=== PATIENT | male | born 1955 | race Caucasian/White ===

== ENCOUNTER 2018-02-11 03:36 | Emergency (ER) | payer MEDICAID ==
[~2018-02-11] VITALS: Ht 175.3 cm; Wt 97.5 kg
[2018-02-11] MEDS ORDERED: KETOROLAC TROMETH 60MG/2ML VIAL IM ONE (06:45)
[2018-02-11 07:35] VITALS: BP 120/74
== END 2018-02-11 07:38 | disposition home or self-care (01) ==
LOC: ER 03:39
DX: M19.041 Primary osteoarthritis, right hand (principal); F17.210 Nicotine dependence, cigarettes, uncomplicated; F15.10 Other stimulant abuse, uncomplicated
CPT/HCPCS: 73140; 96372; 99284; J1885

== ENCOUNTER → 2020-07-03 | Outpatient (CLI) | payer MEDICARE, MEDICAID | END | disposition home or self-care (01) | LOC: LAB 17:04 | PROVIDERS: ATTEND Nurse Practitioner Family | DX: U07.1 COVID-19 (principal) | CPT/HCPCS: 36415; 87426 ==

== ENCOUNTER 2022-05-14 18:19 | Inpatient (IN) | payer MEDICARE, MEDICAID ==
[~2022-05-14] VITALS: Ht 172.7 cm; Wt 87.5 kg
[2022-05-14] MEDS ORDERED: SODIUM CHLORIDE 0.9% 500 ML IV ONE (19:15)
[2022-05-14 19:42] LABS: Basophils # (auto) 0.1 10 ^3/uL (0-0.2); Basophils % (auto) 1.1 % (0.0-2.0); Eosinophils # (auto) 0.1 10 ^3/uL (0-0.8); Eosinophils % (auto) 0.5 % (0.0-7.0); Hematocrit 48.6 % (41.0-53.0); Hemoglobin 16.5 g/dL (13.5-17.5); Lymphocytes # (auto) 0.5 10 ^3/uL (0.4-5.4); Lymphocytes % (auto) 4.9 % (10.0-50.0); Mean Corpuscular Hemoglobin 29.8 pg (28.0-32.0); Mean Corpuscular Hgb Conc. 33.9 g/dL (32.0-36.0); Mean Corpuscular Volume 88.1 fL (80.0-100.0); Monocytes # (auto) 0.7 10 ^3/uL (0-1.3); Monocytes % (auto) 7.2 % (0.0-12.0); Neutrophils # (auto) 8.7 10 ^3/uL (1.6-8.6); Neutrophils % (auto) 86.3 % (37.0-80.0); Nucleated Red Blood Cells % 0.1 %; Red Blood Cells 5.52 10^6/uL (4.5-5.90); Red Cell Distribution Width 12.9 % (11.8-14.3); White Blood Cell 10.1 10^3/uL (4.4-10.8)
[2022-05-14] MEDS ORDERED: SODIUM CHLORIDE 0.9% 1,000 ML IVB ONE (19:45)
[2022-05-14 20:00] LABS: Potassium 4.5 mmol/L (3.5-5.1)
[2022-05-14 20:01] LABS: Albumin 3.5 g/dL (3.4-5.0); BUN/Creatinine Ratio 8.9; Calcium 8.8 mg/dL (8.5-10.1)
[2022-05-14 20:04] LABS: Total Protein 6.8 g/dL (6.4-8.2)
[2022-05-14 20:06] LABS: Lactic Acid w/Reflex 2.3 mmol/L (0.4-2.0)
[2022-05-14 20:29] LABS: Albumin 3.7 g/dL (3.4-5.0); BUN/Creatinine Ratio 8.6; Calcium 9.1 mg/dL (8.5-10.1); Magnesium 1.8 mg/dL (1.6-2.6); Potassium 4.4 mmol/L (3.5-5.1); Total Protein 7.8 g/dL (6.4-8.2)
[2022-05-14 22:35] LABS: Lactic Acid w/Reflex 2.1 mmol/L (0.4-2.0)
[2022-05-14] MEDS ORDERED: LACTATED RINGER'S 3,000 ML IV ONE (22:45)
[2022-05-14] MEDS ORDERED: InsuLIN REG 1unit/0.01ml Soln (100units/ml) IV ONE (22:45)
[2022-05-14 23:14] LABS: INR 1.11 (0.9-1.15); Partial Thromboplastin Time 29.5 sec (24.6-33.4)
[2022-05-14] MEDS ORDERED: DEXTROSE (50%) 50ML SYRG IV PRN (23:15)
[2022-05-14] MEDS ORDERED: PANTOPRAZOLE 40 MG/10 ML VIAL INJ IV ONE (23:30)
[2022-05-14 23:50] LABS: Cholesterol 156 mg/dL (< 200); HDL Cholesterol 44 mg/dL (40-59); LDL Cholesterol 109 mg/dL (< 100); Triglycerides 114 mg/dL (< 150)
[2022-05-15] MEDS ORDERED: LACTATED RINGER'S 1,000 ML IV ONE (02:15)
[2022-05-15] MEDS: SODIUM CHLORIDE 0.9% 1,000 ML IV SCH ×3 (02:16→19:15)
[2022-05-15 04:22] LABS: Albumin 2.8 g/dL (3.4-5.0); BUN/Creatinine Ratio 14.1; Bilirubin, Total 0.7 mg/dL (0.2-1.0); Potassium 3.5 mmol/L (3.5-5.1); Total Protein 5.4 g/dL (6.4-8.2)
[2022-05-15 04:33] LABS: Basophils # (auto) 0.2 10 ^3/uL (0-0.2); Basophils % (auto) 2.5 % (0.0-2.0); Eosinophils # (auto) 0 10 ^3/uL (0-0.8); Eosinophils % (auto) 0.7 % (0.0-7.0); Hemoglobin 13.4 g/dL (13.5-17.5); Lymphocytes # (auto) 0.6 10 ^3/uL (0.4-5.4); Lymphocytes % (auto) 9.7 % (10.0-50.0); Mean Corpuscular Hgb Conc. 33.6 g/dL (32.0-36.0); Mean Corpuscular Volume 89.5 fL (80.0-100.0); Monocytes # (auto) 0.7 10 ^3/uL (0-1.3); Monocytes % (auto) 11.3 % (0.0-12.0); Neutrophils % (auto) 75.8 % (37.0-80.0); Red Blood Cells 4.47 10^6/uL (4.5-5.90); Red Cell Distribution Width 13.3 % (11.8-14.3); White Blood Cell 6.5 10^3/uL (4.4-10.8)
[2022-05-15 05:05] VITALS: BP 108/68
[2022-05-15] MEDS: ACCU-CHEK COMFORT CURVE STRIP VI SCH ×4 (06:25→22:35)
[2022-05-15] MEDS: InsuLIN REG 1unit/0.01ml Soln (100units/ml) SC SCH ×4 (06:28→22:36)
[2022-05-15 09:00] VITALS: BP 105/68
[2022-05-15] MEDS ORDERED: PANTOPRAZOLE 40 MG/10 ML VIAL INJ IV SCH (10:00)
[2022-05-15] MEDS: ENOXAPARIN SOD 40 MG/0.4 ML SYRINGE SC SCH (11:49)
[2022-05-15 13:00] VITALS: BP 124/72
[2022-05-15 16:49] VITALS: BP 115/78
[2022-05-15 21:09] LABS: Alcohol, Urine < 3.0 mg/dL (0-10); Amphetamine Screen, Urine POSITIVE (NEGATIVE); Barbiturate Scree,Urine NEGATIVE (NEGATIVE); Cannabinoid Screen, Urine NEGATIVE (NEGATIVE); Cocaine Screen, Urine NEGATIVE (NEGATIVE); Opiate Scree,Urine NEGATIVE (NEGATIVE); Phencyclidine Screen, Urine NEGATIVE (NEGATIVE)
[2022-05-15 21:18] LABS: Benzodiazephine Screen, Urine NEGATIVE (NEGATIVE)
[2022-05-15 21:41] LABS: Urine Bacteria NONE SEEN /hpf (None Seen); Urine Blood Negative /uL (Negative); Urine Mucus FEW (None Seen); Urine Specific Gravity 1.014 (1.001-1.035); Urine WBC 3 /hpf (0 - 3)
[2022-05-15 22:00] VITALS: BP 113/74
[2022-05-15] MEDS: OSELTAMIVIR 75 MG CAP PO SCH (22:00)
[2022-05-15] MEDS: LACTATED RINGER'S 1,000 ML IV SCH (22:35)
[2022-05-16 05:00] VITALS: BP 99/71
[2022-05-16] MEDS: SODIUM CHLORIDE 0.9% 1,000 ML IV SCH (05:15)
[2022-05-16] MEDS: ACCU-CHEK COMFORT CURVE STRIP VI SCH ×4 (06:38→21:34)
[2022-05-16] MEDS: InsuLIN REG 1unit/0.01ml Soln (100units/ml) SC SCH ×5 (06:39→21:55)
[2022-05-16 07:06] LABS: Potassium 3.3 mmol/L (3.5-5.1)
[2022-05-16 07:19] LABS: BUN/Creatinine Ratio 18.3; Calcium 8.4 mg/dL (8.5-10.1)
[2022-05-16 09:00] VITALS: BP 104/67
[2022-05-16] MEDS: OSELTAMIVIR 75 MG CAP PO SCH ×2 (10:00→21:33)
[2022-05-16] MEDS: ENOXAPARIN SOD 40 MG/0.4 ML SYRINGE SC SCH (10:18)
[2022-05-16] MEDS: LACTATED RINGER'S 1,000 ML IV SCH ×2 (10:18→17:45)
[2022-05-16] MEDS: ACETAMINOPHEN 325 MG TAB PO PRN (11:31)
[2022-05-16] MEDS ORDERED: POTASSIUM CHL 20 Meq TABLET PO ONE (12:15)
[2022-05-16 13:00] VITALS: BP 105/63
[2022-05-16] MEDS ORDERED: OSEL75CA5 PO (13:21)
[2022-05-16 17:00] VITALS: BP 113/72
[2022-05-16 22:00] VITALS: BP 133/73
[2022-05-17] MEDS: ACETAMINOPHEN 325 MG TAB PO PRN (03:23)
[2022-05-17] MEDS: LACTATED RINGER'S 1,000 ML IV SCH (04:11)
[2022-05-17 05:00] VITALS: BP 130/69
[2022-05-17] MEDS: ACCU-CHEK COMFORT CURVE STRIP VI SCH ×2 (06:30→12:35)
[2022-05-17] MEDS: InsuLIN REG 1unit/0.01ml Soln (100units/ml) SC SCH ×2 (06:38→12:36)
[2022-05-17 09:00] VITALS: BP 119/72
[2022-05-17] MEDS: OSELTAMIVIR 75 MG CAP PO SCH (10:00)
[2022-05-17] MEDS ORDERED: INSLANTI SC (12:22)
[2022-05-17] MEDS ORDERED: METF-372 PO (12:22)
[2022-05-17] MEDS: ENOXAPARIN SOD 40 MG/0.4 ML SYRINGE SC SCH (12:36)
== END 2022-05-17 14:23 | disposition home or self-care (01) | DRG 872 ==
LOC: ER 18:19 → OVERFLOW 23:10 → WEST WING 05-15 04:39
PROVIDERS: ADMIT Nurse Practitioner Family; ATTEND Family Medicine
DX: A41.9 Sepsis, unspecified organism (principal); N17.9 Acute kidney failure, unspecified; E87.1 Hypo-osmolality and hyponatremia; E86.0 Dehydration; E66.01 Morbid (severe) obesity due to excess calories; I10 Essential (primary) hypertension; E11.649 Type 2 diabetes mellitus with hypoglycemia without coma; E11.65 Type 2 diabetes mellitus with hyperglycemia; E87.6 Hypokalemia; F15.10 Other stimulant abuse, uncomplicated; J10.1 Influenza due to other identified influenza virus with other respiratory manifestations; F17.210 Nicotine dependence, cigarettes, uncomplicated; R26.81 Unsteadiness on feet; Z20.822 Contact with and (suspected) exposure to COVID-19; Z71.51 Drug abuse counseling and surveillance of drug abuser; Z91.199 Patient's noncompliance with other medical treatment and regimen due to unspecified reason; Z68.29 Body mass index [BMI] 29.0-29.9, adult; I95.9 Hypotension, unspecified
CPT/HCPCS: 36415; 71045; 80048; 80053; 80061; 80307; 81001; 82962; 83036; 83605; 83690; 83735; 84443; 84484; 85025; 85610; 85730; 87040; 87426; 87804; 93005; 96361; 96374; 96375; 97116; 97162; 97530; C9113; G0378; J1815

== ENCOUNTER 2022-08-31 11:28 | Inpatient (IN) | payer MEDICARE, MEDICAID ==
[~2022-08-31] VITALS: Ht 172.7 cm; Wt 92.5 kg
[~2022-08-31 11:28] MED LIST: INSLANTI SC; METF-372 PO; OSEL75CA5 PO
[2022-08-31] MEDS ORDERED: SODIUM CHLORIDE 0.9% 1,000 ML IV ONE (12:15)
[2022-08-31 12:57] LABS: Basophils # (auto) 0.1 10 ^3/uL (0-0.2); Basophils % (auto) 1.2 % (0.0-2.0); Eosinophils # (auto) 0.2 10 ^3/uL (0-0.8); Eosinophils % (auto) 1.9 % (0.0-7.0); Hematocrit 42.4 % (41.0-53.0); Hemoglobin 14.4 g/dL (13.5-17.5); Lymphocytes # (auto) 1.4 10 ^3/uL (0.4-5.4); Lymphocytes % (auto) 15.7 % (10.0-50.0); Mean Corpuscular Hemoglobin 29.3 pg (28.0-32.0); Mean Corpuscular Hgb Conc. 33.9 g/dL (32.0-36.0); Mean Corpuscular Volume 86.3 fL (80.0-100.0); Monocytes # (auto) 1.3 10 ^3/uL (0-1.3); Monocytes % (auto) 15.3 % (0.0-12.0); Neutrophils # (auto) 5.7 10 ^3/uL (1.6-8.6); Neutrophils % (auto) 65.9 % (37.0-80.0); Nucleated Red Blood Cells % 0.1 %; Red Blood Cells 4.92 10^6/uL (4.5-5.90); Red Cell Distribution Width 14.1 % (11.8-14.3); White Blood Cell 8.6 10^3/uL (4.4-10.8)
[2022-08-31 13:13] LABS: Albumin 3.5 g/dL (3.4-5.0); BUN/Creatinine Ratio 11.7; Calcium 9.1 mg/dL (8.5-10.1); Potassium 4.2 mmol/L (3.5-5.1)
[2022-08-31 13:26] LABS: Bilirubin, Total 0.8 mg/dL (0.2-1.0); Total Protein 6.9 g/dL (6.4-8.2)
[2022-08-31 13:27] LABS: Lactic Acid w/Reflex 2.9 mmol/L (0.4-2.0)
[2022-08-31 13:46] LABS: INR 1.01 (0.9-1.15); Partial Thromboplastin Time 30.2 sec (24.6-33.4)
[2022-08-31] MEDS ORDERED: REMDESIVIR PER PHARMACY 0 ML IV SCH (15:45)
[2022-08-31] MEDS ORDERED: ACETAMINOPHEN 500 MG TAB PO PRN (15:45)
[2022-08-31] MEDS: SODIUM CHLORIDE 0.9% 1,000 ML IV SCH (15:45)
[2022-08-31] MEDS ORDERED: ALBUTEROL SULF HFA 90MCG INH 200DOSE IN PRN (15:45)
[2022-08-31] MEDS ORDERED: MORPHINE SULFATE INJ 2 MG/ml SYRG IV PRN (16:00)
[2022-08-31] MEDS ORDERED: DEXTROSE (50%) 50ML SYRG IV PRN (16:00)
[2022-08-31] MEDS ORDERED: NITROGLYCERIN 0.4 MG SL TAB SL PRN (16:00)
[2022-08-31] MEDS ORDERED: ACETAMINOPHEN 325 MG TAB PO PRN (16:00)
[2022-08-31] MEDS ORDERED: PANTOPRAZOLE 40 MG/10 ML VIAL INJ IV ONE (16:15)
[2022-08-31 16:19] LABS: Basophils # (auto) 0.1 10 ^3/uL (0-0.2); Basophils % (auto) 1.1 % (0.0-2.0); Eosinophils # (auto) 0.2 10 ^3/uL (0-0.8); Eosinophils % (auto) 2.7 % (0.0-7.0); Hemoglobin 13.4 g/dL (13.5-17.5); Lymphocytes # (auto) 1.1 10 ^3/uL (0.4-5.4); Lymphocytes % (auto) 14.8 % (10.0-50.0); Mean Corpuscular Hemoglobin 29.1 pg (28.0-32.0); Mean Corpuscular Hgb Conc. 33.5 g/dL (32.0-36.0); Mean Corpuscular Volume 86.7 fL (80.0-100.0); Monocytes # (auto) 1.2 10 ^3/uL (0-1.3); Monocytes % (auto) 16.2 % (0.0-12.0); Neutrophils # (auto) 4.9 10 ^3/uL (1.6-8.6); Neutrophils % (auto) 65.2 % (37.0-80.0); Nucleated Red Blood Cells % 0.1 %; Red Blood Cells 4.62 10^6/uL (4.5-5.90); Red Cell Distribution Width 14.1 % (11.8-14.3); White Blood Cell 7.6 10^3/uL (4.4-10.8)
[2022-08-31 16:25] LABS: Lactic Acid w/Reflex 2.6 mmol/L (0.4-2.0)
[2022-08-31 16:34] LABS: Calcium 7.9 mg/dL (8.5-10.1); Magnesium 1.5 mg/dL (1.6-2.6); Potassium 3.8 mmol/L (3.5-5.1)
[2022-08-31 16:43] LABS: BUN/Creatinine Ratio 13.6; Bilirubin, Total 0.5 mg/dL (0.2-1.0); CRP High Sensitivity 6.15 mg/dL (< 0.3); Total Protein 6.4 g/dL (6.4-8.2)
[2022-08-31 16:45] LABS: Thyroid Stimulating Hormone 1.81 uIU/mL (0.358-3.74)
[2022-08-31] MEDS: InsuLIN REG 1unit/0.01ml Soln (100units/ml) SC SCH ×2 (16:45→22:40)
[2022-08-31] MEDS: ACCU-CHEK COMFORT CURVE STRIP VI SCH ×2 (16:45→22:40)
[2022-08-31] MEDS ORDERED: REMDESIVIR 200 MG in NS 210ml LOADING DOSE ADULT IV ONE (17:00)
[2022-08-31 17:19] LABS: Urine Bacteria NONE SEEN /hpf (None Seen); Urine Blood Negative /uL (Negative); Urine Hyaline Cast MOD /lpf (0 - 2); Urine Mucus FEW (None Seen); Urine Specific Gravity 1.013 (1.001-1.035); Urine WBC 1 /hpf (0 - 3)
[2022-09-01 00:22] VITALS: BP 126/84
[2022-09-01] MEDS: SODIUM CHLORIDE 0.9% 1,000 ML IV SCH ×4 (01:27→23:45)
[2022-09-01 06:00] LABS: Basophils # (auto) 0.1 10 ^3/uL (0-0.2); Basophils % (auto) 1.1 % (0.0-2.0); Eosinophils # (auto) 0.4 10 ^3/uL (0-0.8); Eosinophils % (auto) 5.4 % (0.0-7.0); Hematocrit 39.8 % (41.0-53.0); Hemoglobin 13.8 g/dL (13.5-17.5); Lymphocytes % (auto) 15.5 % (10.0-50.0); Mean Corpuscular Hemoglobin 29.2 pg (28.0-32.0); Mean Corpuscular Hgb Conc. 34.7 g/dL (32.0-36.0); Mean Corpuscular Volume 84.2 fL (80.0-100.0); Monocytes # (auto) 0.7 10 ^3/uL (0-1.3); Monocytes % (auto) 11.1 % (0.0-12.0); Neutrophils # (auto) 4.4 10 ^3/uL (1.6-8.6); Neutrophils % (auto) 66.9 % (37.0-80.0); Nucleated Red Blood Cells % 0.1 %; Red Blood Cells 4.73 10^6/uL (4.5-5.90); White Blood Cell 6.6 10^3/uL (4.4-10.8)
[2022-09-01 06:15] LABS: Albumin 2.9 g/dL (3.4-5.0); Calcium 8.3 mg/dL (8.5-10.1); Potassium 3.7 mmol/L (3.5-5.1)
[2022-09-01 06:21] LABS: BUN/Creatinine Ratio 17.5; Bilirubin, Total 0.5 mg/dL (0.2-1.0); Total Protein 6.4 g/dL (6.4-8.2)
[2022-09-01] MEDS: ACCU-CHEK COMFORT CURVE STRIP VI SCH ×4 (06:34→22:00)
[2022-09-01] MEDS: InsuLIN REG 1unit/0.01ml Soln (100units/ml) SC SCH ×3 (06:37→16:55)
[2022-09-01] MEDS: CHOLECALCIFEROL (VITD3) 2,000 UNIT CAP/TAB PO SCH (09:14)
[2022-09-01] MEDS: DexAMETHasone SOD PHOS 10MG/1ML VIAL INJ IV SCH (09:15)
[2022-09-01] MEDS: PANTOPRAZOLE 40 MG/10 ML VIAL INJ IV SCH (09:15)
[2022-09-01] MEDS: AZITHROMYCIN 500MG/ 250ML 250 ML IV SCH (09:15)
[2022-09-01] MEDS: ZINC SULFATE 220mg CAP or TAB PO SCH (09:15)
[2022-09-01] MEDS: ENOXAPARIN SOD 40 MG/0.4 ML SYRINGE SC SCH (09:15)
[2022-09-01] MEDS: ASCORBIC ACID 1,000 MG TAB PO SCH (09:15)
[2022-09-01] MEDS: REMDESIVIR 100mg 100 MG in SODIUM CHL 0.9% 230 ML IV SCH (16:37)
[2022-09-01 22:00] VITALS: BP 121/78
[2022-09-02] MEDS: InsuLIN REG 1unit/0.01ml Soln (100units/ml) SC SCH ×5 (04:11→22:21)
[2022-09-02 05:00] VITALS: BP 129/89
[2022-09-02] MEDS: SODIUM CHLORIDE 0.9% 1,000 ML IV SCH ×3 (05:08→23:45)
[2022-09-02] MEDS: ACCU-CHEK COMFORT CURVE STRIP VI SCH ×4 (07:00→22:22)
[2022-09-02 09:15] VITALS: BP 133/80
[2022-09-02] MEDS: PANTOPRAZOLE 40 MG/10 ML VIAL INJ IV SCH (09:59)
[2022-09-02] MEDS: AZITHROMYCIN 500MG/ 250ML 250 ML IV SCH (09:59)
[2022-09-02] MEDS: DexAMETHasone SOD PHOS 10MG/1ML VIAL INJ IV SCH (10:00)
[2022-09-02] MEDS: ENOXAPARIN SOD 40 MG/0.4 ML SYRINGE SC SCH (10:00)
[2022-09-02] MEDS: ZINC SULFATE 220mg CAP or TAB PO SCH (10:01)
[2022-09-02] MEDS: ASCORBIC ACID 1,000 MG TAB PO SCH (10:01)
[2022-09-02] MEDS: CHOLECALCIFEROL (VITD3) 2,000 UNIT CAP/TAB PO SCH (10:01)
[2022-09-02] MEDS ORDERED: MAGNESIUM SULFATE 1GM/100ML 100 ML IV ONE (13:30)
[2022-09-02 13:58] VITALS: BP 111/74
[2022-09-02] MEDS: REMDESIVIR 100mg 100 MG in SODIUM CHL 0.9% 230 ML IV SCH (15:39)
[2022-09-02 17:00] VITALS: BP 125/69
[2022-09-02 21:57] VITALS: BP 123/78
[2022-09-03 05:00] VITALS: BP 124/80
[2022-09-03 06:10] LABS: Basophils # (auto) 0 10 ^3/uL (0-0.2); Basophils % (auto) 0.5 % (0.0-2.0); Eosinophils # (auto) 0.1 10 ^3/uL (0-0.8); Eosinophils % (auto) 0.9 % (0.0-7.0); Hematocrit 43.7 % (41.0-53.0); Hemoglobin 15.2 g/dL (13.5-17.5); Lymphocytes % (auto) 21.2 % (10.0-50.0); Mean Corpuscular Hemoglobin 29.1 pg (28.0-32.0); Mean Corpuscular Hgb Conc. 34.8 g/dL (32.0-36.0); Mean Corpuscular Volume 83.7 fL (80.0-100.0); Monocytes # (auto) 0.8 10 ^3/uL (0-1.3); Monocytes % (auto) 8.4 % (0.0-12.0); Neutrophils # (auto) 6.4 10 ^3/uL (1.6-8.6); Nucleated Red Blood Cells % 0.8 %; Red Blood Cells 5.22 10^6/uL (4.5-5.90); Red Cell Distribution Width 13.8 % (11.8-14.3); White Blood Cell 9.2 10^3/uL (4.4-10.8)
[2022-09-03 06:24] LABS: Potassium 3.4 mmol/L (3.5-5.1)
[2022-09-03 06:28] LABS: BUN/Creatinine Ratio 21.1; Calcium 9.2 mg/dL (8.5-10.1)
[2022-09-03 06:35] LABS: Bilirubin, Total 0.4 mg/dL (0.2-1.0); Total Protein 7.3 g/dL (6.4-8.2)
[2022-09-03] MEDS: InsuLIN REG 1unit/0.01ml Soln (100units/ml) SC SCH ×4 (06:54→21:42)
[2022-09-03] MEDS: ACCU-CHEK COMFORT CURVE STRIP VI SCH ×4 (06:59→21:39)
[2022-09-03] MEDS: SODIUM CHLORIDE 0.9% 1,000 ML IV SCH ×3 (07:45→23:45)
[2022-09-03 08:00] VITALS: BP 104/78
[2022-09-03] MEDS: ASCORBIC ACID 1,000 MG TAB PO SCH (10:02)
[2022-09-03] MEDS: ZINC SULFATE 220mg CAP or TAB PO SCH (10:02)
[2022-09-03] MEDS: DexAMETHasone SOD PHOS 10MG/1ML VIAL INJ IV SCH (10:02)
[2022-09-03] MEDS: CHOLECALCIFEROL (VITD3) 2,000 UNIT CAP/TAB PO SCH (10:03)
[2022-09-03] MEDS: AZITHROMYCIN 500MG/ 250ML 250 ML IV SCH (10:03)
[2022-09-03] MEDS: ENOXAPARIN SOD 40 MG/0.4 ML SYRINGE SC SCH (10:03)
[2022-09-03 12:00] VITALS: BP 109/70
[2022-09-03 13:02] LABS: Alcohol, Urine < 3.0 mg/dL (0-10); Amphetamine Screen, Urine POSITIVE (NEGATIVE); Barbiturate Scree,Urine NEGATIVE (NEGATIVE); Benzodiazephine Screen, Urine NEGATIVE (NEGATIVE); Cannabinoid Screen, Urine NEGATIVE (NEGATIVE); Cocaine Screen, Urine NEGATIVE (NEGATIVE); Opiate Scree,Urine NEGATIVE (NEGATIVE); Phencyclidine Screen, Urine NEGATIVE (NEGATIVE)
[2022-09-03] MEDS: REMDESIVIR 100mg 100 MG in SODIUM CHL 0.9% 230 ML IV SCH (15:38)
[2022-09-03 16:00] VITALS: BP 116/77
[2022-09-03 22:00] VITALS: BP 108/68
[2022-09-04 05:05] VITALS: BP 109/74
[2022-09-04] MEDS: InsuLIN REG 1unit/0.01ml Soln (100units/ml) SC SCH ×2 (06:01→11:27)
[2022-09-04] MEDS: ACCU-CHEK COMFORT CURVE STRIP VI SCH ×2 (06:01→11:27)
[2022-09-04] MEDS: SODIUM CHLORIDE 0.9% 1,000 ML IV SCH (06:38)
[2022-09-04 07:10] LABS: Basophils # (auto) 0.1 10 ^3/uL (0-0.2); Basophils % (auto) 0.7 % (0.0-2.0); Eosinophils # (auto) 0.1 10 ^3/uL (0-0.8); Eosinophils % (auto) 1.2 % (0.0-7.0); Hematocrit 45.1 % (41.0-53.0); Hemoglobin 15.6 g/dL (13.5-17.5); Lymphocytes % (auto) 22.5 % (10.0-50.0); Mean Corpuscular Hemoglobin 29.1 pg (28.0-32.0); Mean Corpuscular Hgb Conc. 34.6 g/dL (32.0-36.0); Mean Corpuscular Volume 84.3 fL (80.0-100.0); Monocytes # (auto) 0.8 10 ^3/uL (0-1.3); Monocytes % (auto) 8.7 % (0.0-12.0); Neutrophils % (auto) 66.9 % (37.0-80.0); Nucleated Red Blood Cells % 0.1 %; Red Blood Cells 5.36 10^6/uL (4.5-5.90); Red Cell Distribution Width 13.7 % (11.8-14.3)
[2022-09-04 08:01] LABS: BUN/Creatinine Ratio 29.3; Bilirubin, Total 0.5 mg/dL (0.2-1.0); Calcium 8.6 mg/dL (8.5-10.1); Potassium 3.6 mmol/L (3.5-5.1); Total Protein 6.9 g/dL (6.4-8.2)
[2022-09-04 09:03] VITALS: BP 124/67
[2022-09-04] MEDS: AZITHROMYCIN 500MG/ 250ML 250 ML IV SCH (09:09)
[2022-09-04] MEDS: DexAMETHasone SOD PHOS 10MG/1ML VIAL INJ IV SCH (09:10)
[2022-09-04] MEDS: CHOLECALCIFEROL (VITD3) 2,000 UNIT CAP/TAB PO SCH (09:10)
[2022-09-04] MEDS: ASCORBIC ACID 1,000 MG TAB PO SCH (09:10)
[2022-09-04] MEDS: ENOXAPARIN SOD 40 MG/0.4 ML SYRINGE SC SCH (09:10)
[2022-09-04] MEDS: ZINC SULFATE 220mg CAP or TAB PO SCH (09:10)
[2022-09-04] MEDS ORDERED: METF-372 PO (09:27)
[2022-09-04] MEDS ORDERED: INSLANTI SC (09:27)
[2022-09-04] MEDS ORDERED: AZIT500T66 PO (09:29)
[2022-09-04] MEDS ORDERED: ASCO500C49 PO (09:29)
[2022-09-04] MEDS ORDERED: ZINC220C10 PO (09:29)
== END 2022-09-04 11:28 | disposition home or self-care (01) | DRG 871 ==
LOC: ER 11:30 → OVERFLOW 15:48 → TELE-CENTR 09-01 15:36
PROVIDERS: ADMIT Nurse Practitioner Family; ATTEND Family Medicine
PROC: XW033E5 Introduction of Remdesivir Anti-infective into Peripheral Vein, Percutaneous Approach, New Technology Group 5 (ICD-10-PCS; principal; 2022-08-31)
DX: A41.89 Other specified sepsis (principal); J12.82 Pneumonia due to coronavirus disease 2019; U07.1 COVID-19; R65.21 Severe sepsis with septic shock; E11.65 Type 2 diabetes mellitus with hyperglycemia; E86.0 Dehydration; F17.210 Nicotine dependence, cigarettes, uncomplicated; E66.9 Obesity, unspecified; I50.9 Heart failure, unspecified; E83.42 Hypomagnesemia; Z91.199 Patient's noncompliance with other medical treatment and regimen due to unspecified reason; Z23 Encounter for immunization; Z79.4 Long term (current) use of insulin; Z59.02 Unsheltered homelessness; Z71.6 Tobacco abuse counseling; Z68.30 Body mass index [BMI] 30.0-30.9, adult
CPT/HCPCS: 36415; 71045; 80053; 80061; 80307; 81001; 82306; 82728; 82962; 83036; 83605; 83615; 83735; 83880; 84443; 84484; 85025; 85379; 85610; 85730; 86141; 86710; 87040; 87426; 93005; 93306; 93970; 96365; 96366; 96372; 96375; 96376; C9113; G0378; J1100; J1815

== ENCOUNTER 2023-01-07 22:10 | Emergency (ER) | payer MEDICARE, MEDICAID ==
[~2023-01-07] VITALS: Ht 175.3 cm; Wt 90.9 kg
[~2023-01-07 22:10] MED LIST changes: +ASCO500C49 PO; +AZIT500T66 PO; +ZINC220C10 PO
[2023-01-08] MEDS ORDERED: TETANUS-DIPTH-ACEL PERTUSSIS 0.5ML SYR Tdap IM ONE (01:15)
[2023-01-08] MEDS ORDERED: ONDANSETRON ODT 4 MG TAB PO ONE (01:15)
[2023-01-08] MEDS ORDERED: cefTRIAXone SOD 1,000 MG VL IM ONE (01:15)
[2023-01-08] MEDS ORDERED: HYDROcodone-ACET 5/325MG TAB PO ONE (01:15)
[2023-01-08] MEDS ORDERED: CEPH500C PO (01:21)
[2023-01-08] MEDS ORDERED: TRAM50TA2 PO (01:21)
[2023-01-08 02:30] VITALS: BP 105/69; PULSE 104; RESP 17; TEMP 97.8; O2SAT 99
== END 2023-01-08 02:05 | disposition home or self-care (01) ==
LOC: EDBD 22:10 → ER 22:21
DX: S01.01XA Laceration without foreign body of scalp, initial encounter (principal); S01.81XA Laceration without foreign body of other part of head, initial encounter; S16.1XXA Strain of muscle, fascia and tendon at neck level, initial encounter; V49.9XXA Car occupant (driver) (passenger) injured in unspecified traffic accident, initial encounter; Y93.89 Activity, other specified; Y92.89 Other specified places as the place of occurrence of the external cause; Y99.8 Other external cause status
CPT/HCPCS: 12002; 12011; 70450; 71250; 72125; 74176; 90471; 90715; 96372; 99285; J0696; Q0162

== ENCOUNTER 2023-01-15 11:09 | Emergency (ER) | payer MEDICARE, MEDICAID ==
[~2023-01-15] VITALS: Ht 175.3 cm; Wt 87.0 kg
[~2023-01-15 11:09] MED LIST changes: +CEPH500C PO; +TRAM50TA2 PO
[2023-01-15 11:34] VITALS: BP 105/63; PULSE 60; RESP 18; TEMP 97.6; O2SAT 98
[2023-01-15] MEDS ORDERED: MUPI2OIN2 EX (11:36)
== END 2023-01-15 11:43 | disposition home or self-care (01) ==
LOC: ER 11:09
DX: S01.01XD Laceration without foreign body of scalp, subsequent encounter (principal); E11.9 Type 2 diabetes mellitus without complications; F17.210 Nicotine dependence, cigarettes, uncomplicated; W18.39XD Other fall on same level, subsequent encounter

== ENCOUNTER 2023-03-04 09:41 | Inpatient (IN) | payer MEDICARE, MEDICAID ==
[~2023-03-04] VITALS: Ht 175.3 cm; Wt 89.6 kg
[~2023-03-04 09:41] MED LIST changes: +MUPI2OIN2 EX
[2023-03-04 10:18] LABS: Basophils # (auto) 0.1 10 ^3/uL (0-0.2); Basophils % (auto) 1.2 % (0.0-2.0); Eosinophils # (auto) 0.7 10 ^3/uL (0-0.8); Eosinophils % (auto) 8.8 % (0.0-7.0); Hematocrit 41.6 % (41.0-53.0); Hemoglobin 14.1 g/dL (13.5-17.5); Lymphocytes # (auto) 1.8 10 ^3/uL (0.4-5.4); Lymphocytes % (auto) 21.7 % (10.0-50.0); Mean Corpuscular Hemoglobin 29.7 pg (28.0-32.0); Mean Corpuscular Hgb Conc. 33.8 g/dL (32.0-36.0); Mean Corpuscular Volume 87.8 fL (80.0-100.0); Monocytes # (auto) 0.6 10 ^3/uL (0-1.3); Monocytes % (auto) 7.2 % (0.0-12.0); Neutrophils % (auto) 61.1 % (37.0-80.0); Nucleated Red Blood Cells % 0.1 %; Red Blood Cells 4.74 10^6/uL (4.5-5.90); Red Cell Distribution Width 13.9 % (11.8-14.3); White Blood Cell 8.2 10^3/uL (4.4-10.8)
[2023-03-04 10:26] LABS: Urine Bacteria NONE SEEN /hpf (None Seen); Urine Blood Negative /uL (Negative); Urine Clarity Clear (Clear); Urine Protein, UAD Negative (Negative); Urine Specific Gravity 1.031 (1.001-1.035); Urine Urobilinogen Normal (Negative); Urine WBC <1 /hpf (0 - 3)
[2023-03-04 10:28] LABS: Urine Color Straw (Yellow)
[2023-03-04 10:35] LABS: Albumin 4.2 g/dL (3.2-4.8); Alkaline Phosphatase 127 U/L (46-116); Anion Gap 5.4 (5-15); Aspartate Aminotransferase < 8 U/L (13-40); Bilirubin, Total 0.4 mg/dL (0.2-1.0); Blood Urea Nitrogen 15 mg/dL (9-23); Calcium 9.2 mg/dL (8.5-10.1); Carbon Dioxide 30.6 mmol/L (20-30); Chloride 96 mmol/L (98-107); Potassium 4.4 mmol/L (3.5-5.1); Sodium 132 mmol/L (136-145); Total Protein 6.6 g/dL (5.7-8.2)
[2023-03-04 10:38] LABS: Alanine Aminotransferase < 9 U/L (7-40)
[2023-03-04 10:39] LABS: Glucose 513 mg/dL (74-106)
[2023-03-04] MEDS ORDERED: SODIUM CHLORIDE 0.9% 1,000 ML IV ONE ×2 (12:00)
[2023-03-04] MEDS ORDERED: InsuLIN REG 1unit/0.01ml Soln (100units/ml) IV ONE (12:00)
[2023-03-04] MEDS ORDERED: ACETAMINOPHEN 325 MG TAB PO PRN (14:30)
[2023-03-04] MEDS ORDERED: DEXTROSE (50%) 50ML SYRG IV PRN (14:30)
[2023-03-04] MEDS ORDERED: ALBUTEROL SULF 2.5 MG/0.5ML(0.5%) NEB SOLN NEB PRN (15:00)
[2023-03-04] MEDS ORDERED: IPRATROPIUM BROM 0.5 MG/2.5ML INH SOL NEB PRN (15:00)
[2023-03-04] MEDS ORDERED: FUROSEMIDE 20 MG/2 ML VIAL IV ONE (15:00)
[2023-03-04] MEDS: ACCU-CHEK COMFORT CURVE STRIP VI SCH ×5 (15:02→22:08)
[2023-03-04] MEDS: InsuLIN REG 1unit/0.01ml Soln (100units/ml) SC SCH ×2 (17:40→22:09)
[2023-03-04 17:46] VITALS: PULSE 111; RESP 16
[2023-03-04 19:03] VITALS: O2SAT 99
[2023-03-04 19:13] VITALS: BP 129/83; PULSE 111; RESP 18; TEMP 97.5; O2SAT 99
[2023-03-05] VITALS (9 sets, daily range): BP systolic 90–121; BP diastolic 51–79; PULSE 71–102; RESP 16–20; TEMP 97.9–98.4; O2SAT 91–100
[2023-03-05 05:46] LABS: Basophils # (auto) 0.1 10 ^3/uL (0-0.2); Basophils % (auto) 1.1 % (0.0-2.0); Eosinophils # (auto) 0.7 10 ^3/uL (0-0.8); Eosinophils % (auto) 7.6 % (0.0-7.0); Hematocrit 39.8 % (41.0-53.0); Hemoglobin 13.5 g/dL (13.5-17.5); Lymphocytes # (auto) 1.6 10 ^3/uL (0.4-5.4); Lymphocytes % (auto) 17.1 % (10.0-50.0); Mean Corpuscular Hemoglobin 29.6 pg (28.0-32.0); Mean Corpuscular Hgb Conc. 33.9 g/dL (32.0-36.0); Mean Corpuscular Volume 87.3 fL (80.0-100.0); Monocytes # (auto) 0.6 10 ^3/uL (0-1.3); Monocytes % (auto) 6.7 % (0.0-12.0); Neutrophils # (auto) 6.3 10 ^3/uL (1.6-8.6); Neutrophils % (auto) 67.5 % (37.0-80.0); Red Blood Cells 4.56 10^6/uL (4.5-5.90); Red Cell Distribution Width 13.5 % (11.8-14.3); White Blood Cell 9.4 10^3/uL (4.4-10.8)
[2023-03-05 06:14] LABS: Alkaline Phosphatase 83 U/L (46-116); BUN/Creatinine Ratio 10.7 (10.0-20.0); Blood Urea Nitrogen 11 mg/dL (9-23); Calcium 8.7 mg/dL (8.5-10.1); Chloride 102 mmol/L (98-107); Potassium 4.1 mmol/L (3.5-5.1); Sodium 136 mmol/L (136-145)
[2023-03-05 06:15] LABS: Albumin 3.7 g/dL (3.2-4.8); Aspartate Aminotransferase < 8 U/L (13-40); Bilirubin, Total 0.6 mg/dL (0.2-1.0)
[2023-03-05 06:21] LABS: Alanine Aminotransferase < 9 U/L (7-40); Glucose 211 mg/dL (74-106)
[2023-03-05] MEDS: ACCU-CHEK COMFORT CURVE STRIP VI SCH ×4 (06:52→21:57)
[2023-03-05] MEDS: InsuLIN REG 1unit/0.01ml Soln (100units/ml) SC SCH ×4 (06:55→21:58)
[2023-03-05] MEDS ORDERED: FUROSEMIDE 20 MG/2 ML VIAL IV SCH (10:00)
[2023-03-05] MEDS: FUROSEMIDE 20 MG/2 ML VIAL IV SCH (18:00)
[2023-03-05] MEDS: metFORMIN HYDROCHLORIDE 500 MG TAB PO SCH (18:18)
[2023-03-06] VITALS (8 sets, daily range): BP systolic 96–115; BP diastolic 60–72; PULSE 101–108; RESP 17–21; TEMP 98.1–98.6; O2SAT 92–97
[2023-03-06 06:24] LABS: Chloride 98 mmol/L (98-107); Sodium 135 mmol/L (136-145)
[2023-03-06 06:25] LABS: Anion Gap 5 (5-15); Carbon Dioxide 32 mmol/L (20-30)
[2023-03-06 06:26] LABS: Calcium 9.5 mg/dL (8.7-10.4)
[2023-03-06 06:30] LABS: BUN/Creatinine Ratio 10.9 (10.0-20.0); Blood Urea Nitrogen 12 mg/dL (9-23); Glucose 231 mg/dL (74-106)
[2023-03-06] MEDS: FUROSEMIDE 20 MG/2 ML VIAL IV SCH (06:30)
[2023-03-06] MEDS: ACCU-CHEK COMFORT CURVE STRIP VI SCH ×4 (06:30→22:00)
[2023-03-06] MEDS: InsuLIN REG 1unit/0.01ml Soln (100units/ml) SC SCH ×4 (06:39→23:07)
[2023-03-06] MEDS: metFORMIN HYDROCHLORIDE 500 MG TAB PO SCH (09:43)
[2023-03-06] MEDS ORDERED: DEXTROSE (50%) 50ML SYRG IV PRN (10:45)
[2023-03-06] MEDS ORDERED: metFORMIN HYDROCHLORIDE 500 MG TAB PO SCH (18:00)
[2023-03-07 05:00] VITALS: BP 90/62; PULSE 108; RESP 18; TEMP 98.8; O2SAT 94
[2023-03-07 06:31] LABS: Chloride 100 mmol/L (98-107); Potassium 4.1 mmol/L (3.5-5.1); Sodium 135 mmol/L (136-145)
[2023-03-07 06:32] LABS: Anion Gap 5 (5-15); Calcium 9.5 mg/dL (8.7-10.4); Carbon Dioxide 30 mmol/L (20-30)
[2023-03-07] MEDS: ACCU-CHEK COMFORT CURVE STRIP VI SCH ×2 (06:32→11:52)
[2023-03-07] MEDS: InsuLIN REG 1unit/0.01ml Soln (100units/ml) SC SCH ×2 (06:32→11:53)
[2023-03-07 06:37] LABS: Glucose 201 mg/dL (74-106)
[2023-03-07 06:38] LABS: BUN/Creatinine Ratio 16.9 (10.0-20.0); Blood Urea Nitrogen 20 mg/dL (9-23)
[2023-03-07 08:00] VITALS: BP 107/70; PULSE 107; RESP 19; RESP 21; TEMP 97.7; O2SAT 95
[2023-03-07] MEDS ORDERED: metFORMIN HYDROCHLORIDE 850 MG TAB PO SCH (08:30)
[2023-03-07 09:00] VITALS: BP 107/70; PULSE 107; RESP 21; TEMP 97.7; O2SAT 95
[2023-03-07] MEDS ORDERED: FUROSEMIDE 20 MG/2 ML VIAL IV SCH (10:00)
[2023-03-07] MEDS ORDERED: POTA-228 PO ×2 (10:28)
[2023-03-07] MEDS ORDERED: METF-372 PO (10:28)
[2023-03-07] MEDS ORDERED: GLIP10TA9 PO ×2 (10:28)
[2023-03-07] MEDS ORDERED: FURO1TAB33 PO ×2 (10:28)
[2023-03-07 13:00] VITALS: BP 91/56; PULSE 108; RESP 20; TEMP 98.3; O2SAT 99
[2023-03-08] MEDS ORDERED: POTA-228 PO (16:26)
[2023-03-08] MEDS ORDERED: FURO1TAB33 PO (16:26)
[2023-03-08] MEDS ORDERED: GLIP10TA9 PO (16:26)
[2023-03-08] MEDS ORDERED: METF-372 PO ×3 (16:26→16:27)
== END 2023-03-07 15:00 | disposition home or self-care (01) | DRG 637 ==
LOC: ER 09:41 → OVERFLOW 14:38 → CENTRAL 22:43
PROVIDERS: ADMIT Nurse Practitioner Family; ATTEND Internal Medicine
DX: E11.65 Type 2 diabetes mellitus with hyperglycemia (principal); I50.31 Acute diastolic (congestive) heart failure; E87.1 Hypo-osmolality and hyponatremia; Z71.6 Tobacco abuse counseling; Z59.02 Unsheltered homelessness; Z79.4 Long term (current) use of insulin; Z79.84 Long term (current) use of oral hypoglycemic drugs; Z79.899 Other long term (current) drug therapy; Z91.148 Patient's other noncompliance with medication regimen for other reason; Z91.199 Patient's noncompliance with other medical treatment and regimen due to unspecified reason; Z72.0 Tobacco use
CPT/HCPCS: 36415; 71045; 80048; 80053; 81001; 82010; 82962; 83036; 83880; 84443; 84484; 85025; 93306; 93970; 96361; 96372; 96374; 96375; G0378; J1815

== ENCOUNTER 2023-03-08 15:54 | Emergency (ER) | payer MEDICARE, MEDICAID ==
[~2023-03-08] VITALS: Ht 175.3 cm; Wt 93.1 kg
[~2023-03-08 15:54] MED LIST changes: +FURO1TAB33 PO; +GLIP10TA9 PO; +POTA-228 PO
[2023-03-08 16:19] VITALS: BP 115/72; PULSE 114; RESP 18; TEMP 97.7; O2SAT 94
[2023-03-08] MEDS ORDERED: METF-372 PO ×3 (16:26→16:27)
[2023-03-08] MEDS ORDERED: GLIP10TA9 PO (16:26)
[2023-03-08] MEDS ORDERED: FURO1TAB33 PO (16:26)
[2023-03-08] MEDS ORDERED: POTA-228 PO (16:26)
== END 2023-03-08 16:37 | disposition home or self-care (01) ==
LOC: ER 15:54
DX: E11.9 Type 2 diabetes mellitus without complications (principal); F17.210 Nicotine dependence, cigarettes, uncomplicated; Z76.0 Encounter for issue of repeat prescription; Z79.84 Long term (current) use of oral hypoglycemic drugs; Z79.899 Other long term (current) drug therapy

== ENCOUNTER 2023-06-17 23:58 | Emergency (ER) | payer MEDICARE, MEDICAID ==
[~2023-06-17] VITALS: Ht 175.3 cm; Wt 90.9 kg
[~2023-06-17 23:58] MED LIST changes: -FURO1TAB33 PO; -GLIP10TA9 PO; -POTA-228 PO
[2023-06-18 00:10] VITALS: BP 122/58; PULSE 100; RESP 16; TEMP 97.6
[2023-06-18] MEDS ORDERED: GLIP10TA9 PO (03:27)
[2023-06-18] MEDS ORDERED: POTA10TA51 PO (03:27)
[2023-06-18] MEDS ORDERED: FURO20TA3 PO (03:27)
[2023-06-18 04:00] VITALS: O2SAT 96
== END 2023-06-18 04:06 | disposition home or self-care (01) ==
LOC: ER 23:58
DX: E11.9 Type 2 diabetes mellitus without complications (principal); R05.9 Cough, unspecified; F17.210 Nicotine dependence, cigarettes, uncomplicated; Z76.0 Encounter for issue of repeat prescription; Z79.4 Long term (current) use of insulin; Z79.899 Other long term (current) drug therapy

== ENCOUNTER 2024-03-17 02:16 | Inpatient (IN) | payer MEDICARE, MEDICAID ==
[~2024-03-17] VITALS: Ht 175.3 cm; Wt 95.2 kg
[~2024-03-17 02:16] MED LIST changes: +FURO20TA3 PO; +GLIP10TA9 PO; +POTA-36 PO
[2024-03-17] MEDS: SODIUM CHLORIDE 0.9% 1,000 ML IV ONE (04:45)
[2024-03-17 05:13] LABS: Basophils # (auto) 0.1 10 ^3/uL (0-0.2); Basophils % (auto) 0.8 % (0.0-2.0); Eosinophils # (auto) 0.5 10 ^3/uL (0-0.8); Hematocrit 40.3 % (41.0-53.0); Hemoglobin 13.9 g/dL (13.5-17.5); Lymphocytes # (auto) 1.5 10 ^3/uL (0.4-5.4); Lymphocytes % (auto) 15.3 % (10.0-50.0); Mean Corpuscular Hemoglobin 30.7 pg (28.0-32.0); Mean Corpuscular Hgb Conc. 34.5 g/dL (32.0-36.0); Monocytes # (auto) 0.8 10 ^3/uL (0-1.3); Monocytes % (auto) 8.3 % (0.0-12.0); Neutrophils # (auto) 7.1 10 ^3/uL (1.6-8.6); Neutrophils % (auto) 70.6 % (37.0-80.0); Platelet Count (auto) 186 10^3/uL (140-450); Red Blood Cells 4.53 10^6/uL (4.5-5.90); Red Cell Distribution Width 13.8 % (11.8-14.3); White Blood Cell 10.1 10^3/uL (4.4-10.8)
[2024-03-17 05:45] LABS: Albumin 4.2 g/dL (3.2-4.8); Alkaline Phosphatase 116 U/L (46-116); Anion Gap 5 (5-15); Aspartate Aminotransferase < 8 U/L (13-40); BUN/Creatinine Ratio 12.6 (10.0-20.0); Bilirubin, Total 0.5 mg/dL (0.2-1.0); Blood Urea Nitrogen 15 mg/dL (9-23); Calcium 9.4 mg/dL (8.7-10.4); Carbon Dioxide 29 mmol/L (20-30); Chloride 99 mmol/L (98-107); Glucose 356 mg/dL (74-106); Potassium 4.2 mmol/L (3.5-5.1); Sodium 133 mmol/L (136-145); Total Protein 6.8 g/dL (5.7-8.2)
[2024-03-17 05:46] LABS: Alanine Aminotransferase < 9 U/L (7-40)
[2024-03-17] MEDS ORDERED: ONDANSETRON HCL 4 MG/2 ML VIAL IV PRN (11:15)
[2024-03-17] MEDS ORDERED: DEXTROSE (50%) 50ML SYRG IV PRN (11:15)
[2024-03-17] MEDS ORDERED: HYDROcodone-ACET 5/325MG TAB PO PRN (11:15)
[2024-03-17] MEDS ORDERED: MORPHINE SULFATE INJ 2 MG/ml SYRG IV PRN (11:15)
[2024-03-17] MEDS ORDERED: ACCU-CHEK COMFORT CURVE STRIP VI SCH (11:30)
[2024-03-17] MEDS ORDERED: InsuLIN REG 1unit/0.01ml Soln (100units/ml) SC SCH ×2 (11:30→22:00)
[2024-03-17] MEDS ORDERED: FURO20TA4 PO (11:33)
[2024-03-17] MEDS ORDERED: VANCOMYCIN PER PHARMACY 0 MG IV SCH (12:00)
[2024-03-17] MEDS: FUROSEMIDE 20 MG TAB PO SCH (12:48)
[2024-03-17] MEDS: POTASSIUM CHL 10 Meq TABLET PO SCH (12:48)
[2024-03-17] MEDS: VANCOMYCIN 1GM/200ML 200 ML IV SCH (13:03)
[2024-03-17] MEDS: ACCU-CHEK COMFORT CURVE STRIP VI SCH (17:00)
[2024-03-17] MEDS: InsuLIN REG 1unit/0.01ml Soln (100units/ml) SC SCH ×2 (17:14→22:44)
[2024-03-17 21:45] VITALS: BP 148/81; PULSE 108; RESP 19; TEMP 98.3; O2SAT 94
[2024-03-17 22:16] VITALS: PULSE 108; RESP 19; O2SAT 94
[2024-03-18] VITALS (7 sets, daily range): BP systolic 97–132; BP diastolic 59–80; PULSE 84–105; RESP 16–20; TEMP 97.6–99; O2SAT 92–100
[2024-03-18] MEDS: VANCOMYCIN 1GM/200ML 200 ML IV SCH (01:08)
[2024-03-18 06:57] LABS: Basophils # (auto) 0.1 10 ^3/uL (0-0.2); Basophils % (auto) 0.6 % (0.0-2.0); Eosinophils # (auto) 0.5 10 ^3/uL (0-0.8); Eosinophils % (auto) 4.6 % (0.0-7.0); Hematocrit 40.6 % (41.0-53.0); Lymphocytes # (auto) 1.3 10 ^3/uL (0.4-5.4); Lymphocytes % (auto) 11.8 % (10.0-50.0); Mean Corpuscular Hemoglobin 30.8 pg (28.0-32.0); Mean Corpuscular Hgb Conc. 34.5 g/dL (32.0-36.0); Mean Corpuscular Volume 89.3 fL (80.0-100.0); Monocytes % (auto) 8.6 % (0.0-12.0); Neutrophils # (auto) 8.3 10 ^3/uL (1.6-8.6); Neutrophils % (auto) 74.4 % (37.0-80.0); Platelet Count (auto) 194 10^3/uL (140-450); Red Blood Cells 4.55 10^6/uL (4.5-5.90); Red Cell Distribution Width 13.4 % (11.8-14.3); White Blood Cell 11.2 10^3/uL (4.4-10.8)
[2024-03-18 07:10] LABS: Chloride 101 mmol/L (98-107); Potassium 4.1 mmol/L (3.5-5.1); Sodium 137 mmol/L (136-145)
[2024-03-18 07:11] LABS: Anion Gap 7 (5-15); Carbon Dioxide 29 mmol/L (20-30)
[2024-03-18 07:12] LABS: Calcium 9.4 mg/dL (8.7-10.4)
[2024-03-18 07:16] LABS: BUN/Creatinine Ratio 8.4 (10.0-20.0); Blood Urea Nitrogen 9 mg/dL (9-23)
[2024-03-18 07:17] LABS: Glucose 211 mg/dL (74-106)
[2024-03-18] MEDS ORDERED: FUROSEMIDE 20 MG TAB PO SCH (10:00)
[2024-03-18] MEDS ORDERED: POTASSIUM CHL 10 Meq TABLET PO SCH (10:00)
[2024-03-18] MEDS: CEFEPIME 2GM/50ML NS 50 ML IV SCH (16:26)
[2024-03-19 01:00] VITALS: BP 111/56; PULSE 80; RESP 20; TEMP 98.6; O2SAT 93
[2024-03-19 05:00] VITALS: BP 116/77; PULSE 98; RESP 16; TEMP 98.5; O2SAT 93
[2024-03-19 07:54] LABS: Basophils # (auto) 0.1 10 ^3/uL (0-0.2); Basophils % (auto) 0.7 % (0.0-2.0); Eosinophils # (auto) 0.3 10 ^3/uL (0-0.8); Eosinophils % (auto) 3.6 % (0.0-7.0); Hematocrit 43.1 % (41.0-53.0); Lymphocytes # (auto) 1.3 10 ^3/uL (0.4-5.4); Lymphocytes % (auto) 13.4 % (10.0-50.0); Mean Corpuscular Hemoglobin 30.6 pg (28.0-32.0); Mean Corpuscular Hgb Conc. 34.7 g/dL (32.0-36.0); Mean Corpuscular Volume 88.1 fL (80.0-100.0); Monocytes # (auto) 0.8 10 ^3/uL (0-1.3); Neutrophils # (auto) 7.1 10 ^3/uL (1.6-8.6); Neutrophils % (auto) 74.3 % (37.0-80.0); Platelet Count (auto) 201 10^3/uL (140-450); Red Blood Cells 4.89 10^6/uL (4.5-5.90); Red Cell Distribution Width 13.3 % (11.8-14.3); White Blood Cell 9.5 10^3/uL (4.4-10.8)
[2024-03-19 08:15] LABS: Albumin 4.2 g/dL (3.2-4.8); Alkaline Phosphatase 97 U/L (46-116); Anion Gap 9 (5-15); Aspartate Aminotransferase 9 U/L (13-40); BUN/Creatinine Ratio 12.4 (10.0-20.0); Bilirubin, Total 0.6 mg/dL (0.2-1.0); Blood Urea Nitrogen 13 mg/dL (9-23); Calcium 9.9 mg/dL (8.7-10.4); Carbon Dioxide 26 mmol/L (20-31); Chloride 102 mmol/L (98-107); Glucose 243 mg/dL (74-106); Potassium 4.2 mmol/L (3.5-5.1); Sodium 137 mmol/L (136-145); Total Protein 6.9 g/dL (5.7-8.2)
[2024-03-19 08:18] LABS: Alanine Aminotransferase < 9 U/L (7-40)
[2024-03-19 09:00] VITALS: BP 104/72; PULSE 97; RESP 18; TEMP 98; O2SAT 97
[2024-03-19 23:09] VITALS: BP 105/58; PULSE 92; RESP 18; TEMP 98.5; O2SAT 94
[2024-03-20 05:59] VITALS: BP 84/55; PULSE 101; RESP 18; TEMP 98.4; O2SAT 94
[2024-03-20 07:19] LABS: Basophils # (auto) 0.1 10 ^3/uL (0-0.2); Basophils % (auto) 0.8 % (0.0-2.0); Eosinophils # (auto) 0.4 10 ^3/uL (0-0.8); Eosinophils % (auto) 3.5 % (0.0-7.0); Hematocrit 43.7 % (41.0-53.0); Hemoglobin 15.1 g/dL (13.5-17.5); Lymphocytes # (auto) 1.3 10 ^3/uL (0.4-5.4); Lymphocytes % (auto) 12.6 % (10.0-50.0); Mean Corpuscular Hemoglobin 30.5 pg (28.0-32.0); Mean Corpuscular Hgb Conc. 34.6 g/dL (32.0-36.0); Mean Corpuscular Volume 88.2 fL (80.0-100.0); Monocytes # (auto) 0.8 10 ^3/uL (0-1.3); Neutrophils # (auto) 7.7 10 ^3/uL (1.6-8.6); Neutrophils % (auto) 75.1 % (37.0-80.0); Nucleated Red Blood Cells % 0.1 %; Platelet Count (auto) 225 10^3/uL (140-450); Red Blood Cells 4.95 10^6/uL (4.5-5.90); Red Cell Distribution Width 13.8 % (11.8-14.3); White Blood Cell 10.2 10^3/uL (4.4-10.8)
[2024-03-20 07:47] LABS: Albumin 4.2 g/dL (3.2-4.8); Alkaline Phosphatase 96 U/L (46-116); Anion Gap 9 (5-15); Aspartate Aminotransferase 11 U/L (13-40); BUN/Creatinine Ratio 14.4 (10.0-20.0); Blood Urea Nitrogen 17 mg/dL (9-23); Calcium 10.1 mg/dL (8.7-10.4); Carbon Dioxide 28 mmol/L (20-31); Chloride 100 mmol/L (98-107); Glucose 240 mg/dL (74-106); Potassium 4.3 mmol/L (3.5-5.1); Sodium 137 mmol/L (136-145)
[2024-03-20 07:48] LABS: Bilirubin, Total 0.6 mg/dL (0.2-1.0); Total Protein 6.9 g/dL (5.7-8.2)
[2024-03-20 07:51] LABS: Alanine Aminotransferase < 9 U/L (7-40)
[2024-03-20 09:00] VITALS: BP 92/63; PULSE 99; RESP 20; TEMP 98.2; O2SAT 100
[2024-03-20 13:00] VITALS: BP 114/70; PULSE 94; RESP 21; TEMP 98.2; O2SAT 94
[2024-03-20 17:00] VITALS: BP 98/64; PULSE 90; RESP 17; TEMP 98.4; O2SAT 97
[2024-03-20 21:00] VITALS: BP 96/58; PULSE 84; RESP 20; TEMP 98.6; O2SAT 94
[2024-03-21 05:00] VITALS: BP 131/70; PULSE 93; RESP 20; TEMP 98.6; O2SAT 97
[2024-03-21 08:00] VITALS: PULSE 70; O2SAT 95
[2024-03-21 09:00] VITALS: BP 104/65; PULSE 84; RESP 19; TEMP 98.1; O2SAT 92
[2024-03-21] MEDS ORDERED: FURO20TA4 PO (12:13)
[2024-03-21 13:00] VITALS: BP 116/55; PULSE 82; RESP 19; TEMP 98.1; O2SAT 94
[2024-03-21 15:08] VITALS: BP 100/68; PULSE 69; RESP 18; TEMP 98.2; O2SAT 97
[2024-03-21 17:00] VITALS: BP 110/73; PULSE 85; RESP 17; TEMP 97.7; O2SAT 95
== END 2024-03-21 18:00 | DRG 871 ==
LOC: ER 02:16 → OVERFLOW 11:27 → WEST WING 20:57
PROVIDERS: ADMIT Internal Medicine; ATTEND Anesthesiology
DX: A41.9 Sepsis, unspecified organism (principal); G93.41 Metabolic encephalopathy; E87.1 Hypo-osmolality and hyponatremia; I13.0 Hypertensive heart and chronic kidney disease with heart failure and stage 1 through stage 4 chronic kidney disease, or unspecified chronic kidney disease; I50.32 Chronic diastolic (congestive) heart failure; N17.9 Acute kidney failure, unspecified; E11.621 Type 2 diabetes mellitus with foot ulcer; E66.9 Obesity, unspecified; L97.512 Non-pressure chronic ulcer of other part of right foot with fat layer exposed; E11.65 Type 2 diabetes mellitus with hyperglycemia; F17.210 Nicotine dependence, cigarettes, uncomplicated; K40.90 Unilateral inguinal hernia, without obstruction or gangrene, not specified as recurrent; K21.9 Gastro-esophageal reflux disease without esophagitis; E11.22 Type 2 diabetes mellitus with diabetic chronic kidney disease; E86.0 Dehydration; I95.9 Hypotension, unspecified; N18.2 Chronic kidney disease, stage 2 (mild); Z79.899 Other long term (current) drug therapy; Z79.2 Long term (current) use of antibiotics; Z79.4 Long term (current) use of insulin; Z68.31 Body mass index [BMI] 31.0-31.9, adult
CPT/HCPCS: 36415; 73630; 73718; 80048; 80053; 80202; 82010; 82962; 83036; 83605; 84484; 85025; 87040; 87077; 87186; 87205; 93926; 96365; 96372; 97163; G0378; J0692; J1815

== ENCOUNTER → 2024-07-27 | Outpatient (CLI) | payer MEDICARE, MEDICAID ==
[~2024-07-27] MED LIST changes: -ASCO500C49 PO; -AZIT500T66 PO; -CEPH500C PO; -FURO20TA3 PO; +FURO20TA4 PO; -GLIP10TA9 PO; -INSLANTI SC; -MUPI2OIN2 EX; -OSEL75CA5 PO; -TRAM50TA2 PO; -ZINC220C10 PO
[2024-07-27 07:45] LABS: Basophils # (auto) 0.1 10 ^3/uL (0-0.2); Basophils % (auto) 0.9 % (0.0-2.0); Eosinophils # (auto) 0.7 10 ^3/uL (0-0.8); Hematocrit 42.8 % (41.0-53.0); Hemoglobin 14.4 g/dL (13.5-17.5); Lymphocytes # (auto) 1.6 10 ^3/uL (0.4-5.4); Lymphocytes % (auto) 16.5 % (10.0-50.0); Mean Corpuscular Hemoglobin 29.4 pg (28.0-32.0); Mean Corpuscular Hgb Conc. 33.5 g/dL (32.0-36.0); Mean Corpuscular Volume 87.6 fL (80.0-100.0); Monocytes # (auto) 0.7 10 ^3/uL (0-1.3); Monocytes % (auto) 7.8 % (0.0-12.0); Neutrophils # (auto) 6.4 10 ^3/uL (1.6-8.6); Neutrophils % (auto) 67.8 % (37.0-80.0); Nucleated Red Blood Cells % 0.1 %; Platelet Count (auto) 232 10^3/uL (140-450); Red Blood Cells 4.89 10^6/uL (4.5-5.90); Red Cell Distribution Width 14.1 % (11.8-14.3); White Blood Cell 9.5 10^3/uL (4.4-10.8)
[2024-07-27 09:07] LABS: Alanine Aminotransferase 12 U/L (7-40); Alkaline Phosphatase 112 U/L (46-116); Anion Gap 9 (5-15); Calcium 10.1 mg/dL (8.7-10.4); Carbon Dioxide 28 mmol/L (20-31); Chloride 99 mmol/L (98-107); Potassium 4.6 mmol/L (3.5-5.1); Sodium 136 mmol/L (136-145)
[2024-07-27 09:08] LABS: Blood Urea Nitrogen 21 mg/dL (9-23)
[2024-07-27 09:09] LABS: Albumin 4.4 g/dL (3.2-4.8)
[2024-07-27 09:10] LABS: Bilirubin, Total 0.5 mg/dL (0.2-1.0)
[2024-07-27 09:11] LABS: Total Protein 7.2 g/dL (5.7-8.2)
[2024-07-27 09:22] LABS: Free T4 (Free Thyroxine) 1.01 ng/dL (0.89-1.76)
[2024-07-27 09:24] LABS: Aspartate Aminotransferase 11 U/L (13-40); Glucose 263 mg/dL (74-106)
[2024-07-27 10:39] LABS: Creatinine, Urine 53.72 mg/dL (30.0-125.0)
[2024-07-27 10:50] LABS: Cholesterol 173 mg/dL (< 200)
[2024-07-27 10:57] LABS: HDL Cholesterol 39 mg/dL (40-59); LDL Cholesterol 117 mg/dL (< 100); Triglycerides 152 mg/dL (< 150)
== END | disposition home or self-care (01) ==
LOC: LAB 07:13
PROVIDERS: ATTEND Licensed Practical Nurse
DX: E11.22 Type 2 diabetes mellitus with diabetic chronic kidney disease (principal); N18.9 Chronic kidney disease, unspecified; E11.42 Type 2 diabetes mellitus with diabetic polyneuropathy; L97.319 Non-pressure chronic ulcer of right ankle with unspecified severity; E66.9 Obesity, unspecified; Z72.0 Tobacco use; Z79.899 Other long term (current) drug therapy; E55.9 Vitamin D deficiency, unspecified
CPT/HCPCS: 36415; 80053; 80061; 82043; 82274; 82306; 82570; 82607; 83036; 84439; 84443; 85025

== ENCOUNTER 2025-02-11 14:00 | Emergency (ER) | payer MEDICARE, MEDICAID ==
[~2025-02-11] VITALS: Ht 175.3 cm; Wt 95.6 kg
[2025-02-11 14:04] VITALS: BP 118/77; RESP 18; TEMP 97.9; O2SAT 96
[2025-02-11 14:20] VITALS: PULSE 111
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
--- NOTE | 2025-02-14 07:38 | ECG ---
[facility] Test Date: 2025-02-11 Test Time: 14:20:05 Pat Name: BESS WINSTON Department: ED Room: Gender: M Fingerprint Classifier: mary : [id number] Requested By: LIN SMITH Order Number: [id number] Reading MD: Rex Bansal Measurements Intervals [place] Rate: 111 P: 41 WA: 176 QRS: 74 QRSD: 85 T: 59 QT: 345 QTc: 469 Interpretive Statements Sinus tachycardia Low voltage, precordial leads Electronically Signed On 02-15-2025 14:31:34 PDT by Rex Bansal Please click the below link to view image of tracing.
== END 2025-02-11 18:52 | disposition left against medical advice (07) ==
LOC: ER 14:00
DX: E11.65 Type 2 diabetes mellitus with hyperglycemia (principal); F17.210 Nicotine dependence, cigarettes, uncomplicated; Z79.84 Long term (current) use of oral hypoglycemic drugs; Z79.899 Other long term (current) drug therapy; Z98.890 Other specified postprocedural states; I10 Essential (primary) hypertension; V89.2XXA Person injured in unspecified motor-vehicle accident, traffic, initial encounter; Y93.55 Activity, bike riding; Y92.488 Other paved roadways as the place of occurrence of the external cause; Y99.8 Other external cause status
CPT/HCPCS: 82947; 93005

== ENCOUNTER 2025-03-28 07:46 | Outpatient (CLI) | payer MEDICARE, MEDICAID ==
[2025-03-28 08:15] LABS: Hematocrit 49.2 % (41.0-53.0); Hemoglobin 16.9 g/dL (13.5-17.5); Mean Corpuscular Hemoglobin 30.1 pg (28.0-32.0); Mean Corpuscular Volume 87.6 fL (80.0-100.0); Nucleated Red Blood Cells % 0.1 %
[2025-03-28 08:36] LABS: Alanine Aminotransferase 11 U/L (7-40); Alkaline Phosphatase 110 U/L (46-116); Anion Gap 13 (5-15); BUN/Creatinine Ratio 9.4 (10.0-20.0); Blood Urea Nitrogen 13 mg/dL (9-23); Calcium 9.6 mg/dL (8.7-10.4); Carbon Dioxide 29 mmol/L (20-31); Cholesterol 181 mg/dL (< 200); HDL Cholesterol 47 mg/dL (40-59); Potassium 3.7 mmol/L (3.5-5.1); Sodium 139 mmol/L (136-145); Total Protein 8.2 g/dL (5.7-8.2)
[2025-03-28 08:37] LABS: Albumin 4.9 g/dL (3.2-4.8); Bilirubin, Total 1.1 mg/dL (0.2-1.0); Chloride 97 mmol/L (98-107); Glucose 154 mg/dL (74-106); Triglycerides 177 mg/dL (< 150)
[2025-03-28 11:53] LABS: Hepatitis A Total Antibody Positive (Negative); Hepatitis B Surface Antigen Negative (Negative); Hepatitis C Antibody Negative (Negative)
== END 2025-03-28 17:00 | disposition home or self-care (01) ==
LOC: LAB 07:46
PROVIDERS: ATTEND Internal Medicine
DX: E11.65 Type 2 diabetes mellitus with hyperglycemia (principal); E55.9 Vitamin D deficiency, unspecified
CPT/HCPCS: 36415; 80053; 80061; 82043; 82306; 83036; 84443; 85025; 86704; 86706; 86708; 86803; 87340

== ENCOUNTER 2025-04-06 10:36 | Outpatient (CLI) | payer MEDICARE, MEDICAID | END 2025-04-08 17:00 | disposition home or self-care (01) | LOC: LAB 10:36 | PROVIDERS: ATTEND Internal Medicine | DX: Z12.11 Encounter for screening for malignant neoplasm of colon (principal); E11.65 Type 2 diabetes mellitus with hyperglycemia; E55.9 Vitamin D deficiency, unspecified | CPT/HCPCS: 82274 ==